=== PATIENT | male | born 1965 | race Caucasian/White ===

== ENCOUNTER 2016-12-24 18:56 | Emergency (ER) | payer OTHER ==
[2016-12-24] MEDS ORDERED: DICYCLOMINE HCL 10 MG/ML AMPUL IM ONE ×2 (19:17→19:18)
[2016-12-24] MEDS ORDERED: HYDROmorphone HCL 1 MG/ML DISP.SYRIN IV ONE (19:17)
[2016-12-24] MEDS ORDERED: HYDROmorphone HCL 1 MG/ML DISP.SYRIN ONE (19:18)
--- NOTE | 2016-12-24 19:26 | ERNOTE ---
<Lexi Luna - Last Filed: 12/24/16 22:07> Abdominal HPI - Narrative Date of Service: 12/24/16 - General Chief Complaint: Abdominal Pain Time Seen by Provider: 12/24/16 19:15 Source: patient Exam Limitations: no limitations - Immun/Allergies/Home Medications Immunizatons: IMMUNIZATION HX Immunizations Up to Date Yes History of Influenza Vaccine Yes Hx Pneumococcal Vaccination No Allergies/Adverse Reactions: Allergies No Known Allergies Allergy (Verified 12/24/16 19:12) Home Medications: HOME MEDICATIONS Clonazepam 1 mg PO TID 12/24/16 [Last Taken Unknown] QUEtiapine FUMARATE [Seroquel] 200 mg PO HS 12/24/16 [Last Taken Unknown] Thiamine HCl [B-1] 100 mg PO DAILY 12/24/16 [Last Taken Unknown] - History of Present Illness Narrative: Pt. comes in with c/o severe LUQ abd pain that radiates into his chest and into his back. Pt. states that this started about 2 hours ago and was accompanied by bloody diarrhea. Pt. states that he has a hx of alcohol related pancreatitis and was at the bar tonight when the pain started. Pt. denies any alleviating factors or prehospital treatment but states that movement exacerbates the pain. Timing: getting worse Quality: severe, stabbing Activities at Onset: other - drinking Associated Symptoms: Present: diarrhea-gross blood Prior Abdominal Problems: Present: similar symptoms Prior Treatment: Present: treated by physician Review of Systems - Review of Systems Constitutional: Present: chills. Absent: fever, weakness, fatigue, malaise EYE: Present: no symptoms reported ENT: Present: no symptoms reported Respiratory: Present: no symptoms reported. Absent: shortness of breath, cough , wheezing Cardiology: Present: chest pain - mis substernum. Absent: palpitations, edema Gastrointestinal/Abdominal: Present: diarrhea - blood, abdominal pain. Absent: constipation Genitourinary: Present: no symptoms reported. Absent: frequency, decreased urinary output Musculoskeletal: Present: back pain - mid. Absent: joint pain Skin: Present: no symptoms reported. Absent: rash, change in hair/nails Neurological: Present: no symptoms reported. Absent: headache, dizziness/light- headedness, numbness, tingling Hematologic/Lymphatic: Present: easy bruising, easy bleeding All Other Systems: All systems neg except as marked - Patient's Past Medical History Patient History - Medical: Alcohol Abuse, Other - pancreatitis Patient History - Cardiac/Respiratory: Hypertension Patient History - Cancer: No Hx of Cancer - Social History Smoking Status: Current every day smoker Have you smoked in the past 12 months: Yes Do you dip or chew tobacco: No Patient requests Smoking Cessation Consult: No Initiate information on Smoking Cessation: No - Immunizations Immunizations Up to Date: Yes Hx Pneumococcal Vaccination: No History of Influenza Vaccine: Yes Physical Exam - Physical Exam General Appearance: Present: wd/wn, alert, moderate distress Head Exam: Present: normal inspection, no evidence of injury Eye Exam: Normal inspection: bilateral, PERRL: bilateral, EOMI: bilateral Ears, Nose, Throat: Present: normal ENT inspection, normal pharynx Neck: Present: normal inspection, nontender. Absent: lymphadenopathy (R), lymphadenopathy (L) Respiratory: Present: no respiratory distress, normal breath sounds, no accessory muscle use, chest nontender, lungs clear Cardiovascular/Chest: Present: no murmur, normal peripheral pulses, tachycardia Gastrointestinal/Abdominal: Present: tenderness - diffuse, distended, hepatomegaly Rectal Exam: Present: blood-streaked stool, hemorrhoids - external and intrenal residual tags no firm indurated hemorrhoids. Absent: tenderness, decreased tone , mass, fecal impaction Back Exam: Present: normal inspection Extremity Exam: Present: normal inspection Neurological Exam: Present: alert, oriented, normal mood/affect, no motor/ sensory deficits Skin Exam: Present: normal color, warm/dry. Absent: pallor, skin rash ED Progress - Vital Signs Patient's Vital Signs:: I have reviewed the patient's vital signs. Vital Signs: Vital Signs 12/24/16 18:59 Temperature 37.6 C H Pulse Rate 97 Respiratory 18 Rate Blood Pressure 131/91 O2 Sat by Pulse 98 Oximetry - Progress/Reassessment Chief Complaint: Abdominal Pain Progress:: Unchanged - Transfer of Care Physician Sign Out: Lexi Luna Receiving Physician: Roland Victoria Pending Results: CT/MRI results Expected Disposition: Admit Departure Clinical Impression: Pancreatitis Qualifiers: Chronicity: acute Pancreatitis type: alcohol induced Acute pancreatitis complication: unspecified Qualified Code(s): K85.20 - Alcohol induced acute pancreatitis without necrosis or infection - Departure Disposition: Home Follow Up Needed Condition: Fair Instructions: Acute Pancreatitis, [id number] Additional Instructions: See your primary care provider as soon as possible. Tale to your doctor about staying hydrated while letting your pancreatitis settle down <Roland Victoria - Last Filed: 12/25/16 00:04> Abdominal HPI - Immun/Allergies/Home Medications Immunizatons: IMMUNIZATION HX Immunizations Up to Date Yes History of Influenza Vaccine Yes Hx Pneumococcal Vaccination No ED Progress - Results and Orders Patient's Lab Results:: I have reviewed the patient's lab results. Results and Orders: Laboratory Tests 12/24/16 12/24/16 12/24/16 19:25 19:25 19:25 WBC 9.1 Hgb 16.5 Hct 46.2 Plt Count 281 PT 9.8 INR (Anticoag Therapy) 0.98 PTT (Gabby) 30.1 Sodium 142 Potassium 3.6 Chloride 105 BUN 7 Creatinine 0.84 Random Glucose 91 Calcium 9.0 Total Bilirubin 1.0 AST 39 ALT 67 Alkaline Phosphatase 162 Troponin I Less than 0.017 Total Protein 7.4 Albumin 3.9 Lipase 1158 H Stool Occult Blood Ethyl Alcohol 25.0 H 12/24/16 20:00 WBC Hgb Hct Plt Count PT INR (Anticoag Therapy) PTT (Gabby) Sodium Potassium Chloride BUN Creatinine Random Glucose Calcium Total Bilirubin AST ALT Alkaline Phosphatase Troponin I Total Protein Albumin Lipase Stool Occult Blood Positive H Ethyl Alcohol - Vital Signs Patient's Vital Signs:: I have reviewed the patient's vital signs. Vital Signs: Vital Signs 12/24/16 12/24/16 12/24/16 18:59 19:15 19:30 Temperature 37.6 C H 36.4 C L Pulse Rate 97 86 81 Respiratory 18 24 H 20 Rate Blood Pressure 131/91 121/95 131/91 O2 Sat by Pulse 98 99 97 Oximetry 12/24/16 12/24/16 12/24/16 19:45 20:00 20:15 Temperature Pulse Rate 87 85 80 Respiratory 20 20 18 Rate Blood Pressure 146/98 145/99 135/87 O2 Sat by Pulse 98 95 97 Oximetry 12/24/16 12/24/16 12/24/16 20:30 20:45 21:00 Temperature Pulse Rate 85 84 79 Respiratory 18 16 16 Rate Blood Pressure 131/83 153/97 157/98 O2 Sat by Pulse 97 96 98 Oximetry 12/24/16 21:15 Temperature Pulse Rate 77 Respiratory 18 Rate Blood Pressure 137/84 O2 Sat by Pulse 100 Oximetry - CT/Ultrasound CT/Ultrasound Narrative: CT abd/pelvis with oral and IV contrast: Hepatic cirrhosis pancreatic duct dilated up to 7mm in elizabeth. 7x14 mm low attenuating lesion within the uncinate process of the pancreas endoscopic u/s evaluation recommended. several coarse calcifications within the spleen consistent with chronic pancreatitis wall thickening within the distal esophagus small bilateral fat containing inguinal hernias Otherwise normal. - Progress/Reassessment Progress Note-Subjective: 12/24/16 23:[address] results. I discussed the case with [facility] hospitalist and we agreed with an observation admit for NPO status, IV fluids and IV pain medications. I spoke with the patient about the CT results and my recommendation of admission. Pt refused admission. I tried to encourage the patient by telling him the benefits of staying (IV fluids and IV pain medications) and the difficulties with staying NPO at home and controlling pain. Pt. continued to refuse admission and stated that he would follow up with his PCP tomorrow and discuss referral for endoscopic U/S to evaluate abnormality. Pt was very anxious throughout the conversation, moving around in the bed and rubbing his head. 12/24/16 23:51 Pt given a final dose of IV dilaudid for his pain prior to leaving. Nurse reported to me that as soon as he received his final dose of dilaudid the patient pulled out his own IV site. Pt appeared calm when he was pushed out of the facility in a wheelchair by his nurse.
[2016-12-24 19:27] LABS: Hematocrit 46.2 % (42.0-52.0); Hemoglobin 16.5 gm/dL (13.5-18.0); Mean Cell Volume 89.9 fl (78-100); Mean Corpuscular Hemoglobin 32.1 pg (27-31); Mean Corpuscular Hgb Conc 35.7 g/dl (32-36); Mean Platelet Volume 8.8 fl (6.0-9.5); Neutrophil # 5.5 K/mm3 (1.3-6.0); Neutrophil % 59.7 % (42-75.0); Platelet Count 281 K/mm3 (150-450); Red Blood Count 5.14 M/mm3 (4.7-6.0); Red Cell Distribution Width 12.6 % (11.5-14.0); White Blood Count 9.1 K/mm3 (4.0-10.5)
[2016-12-24 19:40] LABS: Prothrombin Time (Patient) 9.8 Seconds (9.0-11.0)
[2016-12-24 19:41] LABS: INR 0.98 INR (0.90-1.10); Partial Thrombolplastin Time 30.1 Seconds (24-32)
[2016-12-24 19:47] LABS: ALT 67 U/L (19-67); AST 39 U/L (0-48); Albumin * 3.9 gm/dl (3.4-5.0); Alkaline Phosphatase * 162 U/L (50-170); Anion Gap 16.4 mmol/L (6.8-13.8); BUN/Creatinine Ratio 8.3 (9.0-21.6); Blood Urea Nitrogen 7 mg/dL (6-23); Ca. Corrected For Albumin 8.8 mg/dL (8.4-10.2); Carbon Dioxide 24.2 mmol/L (24-32.6); Chloride 105 mmol/L (97-106); Glucose * 91 mg/dL (70-110); Lipase 1158 U/L (73-393); Potassium 3.6 mmol/L (3.4-4.6); Sodium 142 mmol/L (132-142); Total Protein 7.4 gm/dL (6.2-8.2); Troponin I Less than 0.017 ng/ml (0.00-0.10)
[2016-12-24] MEDS ORDERED: NORMAL SALINE 1,000 ML IV ONE (20:01)
[2016-12-24] MEDS ORDERED: HYDROmorphone HCL 2 MG/ML VIAL IV ONE ×3 (20:01→23:41)
[2016-12-24] MEDS ORDERED: HYDROmorphone HCL 2 MG/ML VIAL ONE ×3 (20:08→23:43)
[2016-12-24] MEDS ORDERED: DIATRIZOATE MEGLUMINE, SODIUM 30 ML BTL PO ONE (20:22)
[2016-12-24] MEDS ORDERED: DIATRIZOATE MEGLUMINE, SODIUM 30 ML BTL ONE (20:23)
[2016-12-24] MEDS ORDERED: ONDANSETRON HCL/PF 2 MG/ML VIAL IV ONE (21:10)
[2016-12-24] MEDS ORDERED: ONDANSETRON HCL/PF 2 MG/ML VIAL ONE (21:11)
[2016-12-24] MEDS ORDERED: diphenhydrAMINE HCL 50 MG/ML VIAL IV ONE (22:40)
[2016-12-24] MEDS ORDERED: diphenhydrAMINE HCL 50 MG/ML VIAL ONE (22:42)
[2016-12-25 00:49] VITALS: BP 155/87
== END 2016-12-24 23:55 | disposition home or self-care (01) ==
LOC: ER 18:56
DX: K85.20 Alcohol induced acute pancreatitis without necrosis or infection (principal); F17.200 Nicotine dependence, unspecified, uncomplicated
CPT/HCPCS: 36415; 74020; 74177; 80053; 82150; 82272; 83690; 84484; 85025; 85610; 85730; 93005; 96372; 96374; 96375; 99285; G0481; J2405